=== PATIENT | male | born 1940 | race Caucasian/White ===

== ENCOUNTER → 2018-03-02 | Outpatient (CLI) | payer MEDICARE, BC ==
--- NOTE | 2018-03-02 18:06 | CONS ---
CONSULTATION DATE OF SERVICE: 03/02/2018 77-year-old gentleman has been evaluated in the sleep center for possible obstructive sleep apnea-hypopnea syndrome. HISTORY OF PRESENT ILLNESS/SLEEP WAKE EVALUATION: Patient usual sleep schedule from 10:30 am until 7:15 am. No problems with falling asleep. No TV in bedroom. Patient sleeps with snoring and awakenings from sleep multiple times with dry mouth and nocturia 3 times at night. After awakenings at night, he has difficulties to fall asleep again. In the morning, he wakes up tired, falling asleep during the day. [place] Sleepiness Scale significantly increased to 12. PAST MEDICAL HISTORY: Positive for hypertension, coronary artery disease, right heel squamous cell carcinoma, hyperlipidemia, thrombocytosis. PAST SURGICAL HISTORY: Coronary artery bypass graft in 1995, surgery for right heel squamous cell carcinoma, left hip replacement. MEDICATIONS: Aspirin, folic acid, Lipitor, Lopressor, Plavix, . SOCIAL HISTORY: Negative for smoking. Alcohol consumption up to two glasses of whiskey every day. REVIEW OF SYSTEMS: Multiple awakenings from sleep and difficulties to fall asleep again. FAMILY HISTORY: Heart problems, snoring. PHYSICAL EXAMINATION: During physical exam, a gentleman without distress. BP 177/100, HR 79, RR 20, height 6 feet 2 inches. Weight 406.6 pounds, body mass index 52.1, temperature 97.5, oxygen saturation at room air 96%. Oropharynx: Extremely low position of soft palate. Wide neck, 21 inches in circumference. ABDOMEN: Obese. Extremities: 1+ ankle edema. Neck Supple, no JVD. Thyroid is not palpable. LUNGS Clear to percussion and to auscultation. Good air exchange. No wheezing or rhonchi. HEART: Systolic murmur. ABDOMEN: Obese. Soft and nontender. Bowel sounds are present. No organomegaly appreciated. EXTREMITIES No clubbing or cyanosis. IT PROJECT COORDINATOR Awake, alert, and oriented X3. Cranial nerves 2 to 7 intact. There is no fasciculation or atrophy. noted. No focal deficits observed. IMPRESSION: 1. Snoring, multiple awakenings from sleep, extremely low position of soft palate, wide neck. Excessive daytime sleepiness. [place] Sleepiness Scale increased to 12. Obstructive sleep apnea-hypopnea syndrome. 2. Morbid obesity. Body mass index 52.1, possible obesity hypoventilation. 3. Hypertension. 4. Coronary artery disease, status post coronary artery bypass grafting. 5. Thrombocytosis. 6. Status post left hip replacement. 7. Hyperlipidemia. 8. Status post surgical treatment of right heel squamous cell carcinoma. PLAN: 1. Polysomnography for evaluation of patient's breathing during sleep. 2. CPAP/BiPAP titration if sleep study confirms obstructive sleep apnea-hypopnea syndrome. 3. Preferable position during sleep on the side. 4. No driving if patient feels any sleepiness. 5. I will see patient for follow up visit to explain results of testing and following plan. Thank you very much for referring this patient for consultation. Sincerely, Robb Chung MD, PhD, FAASM Diplomat of Citizen Of [place] Board of Medical Specialties Citizen Of [place] Board of Internal Medicine Supervisor [employer] of [facility] [place] MMALEENAL / SAMEER: [id number] /
== END | disposition home or self-care (01) ==
LOC: SLEEP 10:55
PROVIDERS: ATTEND Internal Medicine
DX: G47.33 Obstructive sleep apnea (adult) (pediatric) (principal); E66.01 Morbid (severe) obesity due to excess calories; Z68.43 Body mass index [BMI] 50.0-59.9, adult; I10 Essential (primary) hypertension; I25.10 Atherosclerotic heart disease of native coronary artery without angina pectoris; D47.3 Essential (hemorrhagic) thrombocythemia; E78.5 Hyperlipidemia, unspecified; Z95.1 Presence of aortocoronary bypass graft; Z96.642 Presence of left artificial hip joint; Z79.82 Long term (current) use of aspirin; Z79.899 Other long term (current) drug therapy; Z79.02 Long term (current) use of antithrombotics/antiplatelets
CPT/HCPCS: 99211

== ENCOUNTER → 2018-11-03 | Outpatient (CLI) | payer MEDICARE, BC ==
--- NOTE | 2018-11-03 12:49 | SFUN ---
SLEEP CENTER FOLLOW UP NOTE DATE OF SERVICE: 11/03/2018 This 78-year-old gentleman had been followed in sleep center for treatment of obstructive sleep apnea-hypopnea syndrome. Recently the patient had a polysomnogram and BiPAP titration. Polysomnogram showed extremely severe obstructive sleep apnea with apnea-hypopnea index 83.5 and oxygen desaturation 75.9%. Subsequently, patient received his BiPAP machine. Today is his first time when he came for follow-up visit after starting treatment with BiPAP. Patient is able to use BiPAP equipment every night for the whole night. He feels much better with the usage of BiPAP, feel much better during the night and much better during the day. I checked his BiPAP unit pressure is 15/10 cm of water. Usage is 100% of night more than 4 hours with average usage 8.2 hours. Leak is 47 L/minute, which is quite high, but apnea-hypopnea index is only 3.0, which is absolutely normal. The patient is using DreamWear full face mask. [place] Sleepiness Scale today is 3. Last night, the patient had some technical problem with the machine. Machine did not want to start up. PHYSICAL EXAMINATION: During physical exam, patient in no distress. VITAL SIGNS: BP 144/69, HR 105, RR 18, temperature 97.8, oxygen saturation on room air 99%. HEENT: PERRLA, EOMI. Oropharynx extremely low position of soft palate. Mallampati 4. NECK: Supple, no JVD. Thyroid is not palpable. LUNGS: Clear to percussion and to auscultation. Good air exchange. No wheezing or rhonchi. HEART: S1, S2 regular. No murmurs, gallops, or rubs. ABDOMEN:Obese. EXTREMITIES: 1+ bilateral ankle edema. RESEARCH TECHNOLOGIST: Awake, alert, and oriented X3. Cranial nerves 2 to 7 intact. There is no fasciculation or atrophy. noted. No focal deficits observed. IMPRESSION: 1. Severe obstructive sleep apnea-hypopnea syndrome on full control with BiPAP. The patient demonstrated 100% compliance with treatment, benefitting from treatment. 2. Obesity. 3. Extremely severe periodic limb movements, but clinically patient does not complain of any leg movements at the present time. 4. Hypertension. 5. Coronary artery disease, status post coronary artery bypass grafting. 6. Thrombocytosis. 7. Status post left hip replacement. 8. Hyperlipidemia. 9. Status post surgical treatment of right leg squamous cell carcinoma. PLAN: 1. Patient will continue to use BiPAP equipment every night for the whole night. 2. Losing weight. 3. Sleep hygiene with regular time in bed for at least 8 hours. 4. No driving if feeling sleepiness. 5. I will maintain all necessary prescriptions for CPAP supplies including full face mask, tube, filters. Thank you very much for allowing me to participate in management of your patient. Sincerely, Robb Chung MD, PhD, FAASM Diplomat of [place] Board of Medical Specialties [place] Board of Internal Medicine Industrial Electrical Engineer of [facility] [place] MMODL / IJN: [id number] /
== END ==
LOC: SLEEP 11:03
PROVIDERS: ATTEND Internal Medicine
DX: G47.33 Obstructive sleep apnea (adult) (pediatric) (principal); E66.9 Obesity, unspecified; I10 Essential (primary) hypertension; I25.10 Atherosclerotic heart disease of native coronary artery without angina pectoris; E78.5 Hyperlipidemia, unspecified; Z95.1 Presence of aortocoronary bypass graft; Z96.642 Presence of left artificial hip joint; Z98.890 Other specified postprocedural states; Z99.89 Dependence on other enabling machines and devices

== ENCOUNTER → 2019-03-23 | Outpatient (CLI) | payer MEDICARE, BC ==
--- NOTE | 2019-03-23 14:35 | SFUN ---
SLEEP CENTER FOLLOW UP NOTE DATE OF SERVICE: 03/23/2019 A 79-year-old gentleman who has been followed in the Sleep Center for treatment of severe obstructive sleep apnea-hypopnea syndrome. Patient continued to use his BiPAP machine every night for the whole night. No snoring with the machine. [place] Sleepiness Scale today is 8, which is in normal range. I checked BiPAP unit, pressure is 15/10 cm of water. Usage is 30/30 nights for last months for more than 4 hours with average usage 8.6 hours per night, which is normal time, still high leak at 49 L/minute. The patient is using a full-face Dream Wear under the nose mask. Apnea-hypopnea index is absolutely perfect. It is only 0.6, and spontaneous breathing 98.5%. MEDICATIONS: Aspirin, folic acid, Lipitor (Plavix). PHYSICAL EXAM: Patient in no distress BP 146/73, HR 78, RR 18, height 5 feet 11-1/2 inches, weight 377.0, temperature 96.9, oxygen saturation at room air 97%. Wounds are oropharynx extremely low position of soft palate, Mallampati 4. ABDOMEN: Obese. NECK: Supple, no JVD. Thyroid is not palpable. LUNGS: Clear to percussion and to auscultation. Good air exchange. No wheezing or rhonchi. HEART: S1, S2 regular. No murmurs, gallops, or rubs. EXTREMITIES: No clubbing or cyanosis. BUTT WELDER: Awake, alert, and oriented X3. Cranial nerves 2 to 7 intact. There is no fasciculation or atrophy. noted. No focal deficits observed. IMPRESSION: 1. Severe obstructive sleep apnea-hypopnea syndrome on full control with BiPAP. The patient demonstrated 100% compliance with treatment, benefitting from treatment. 2. Obesity. 3. Severe periodic limb movements on the sleep study, but no clinical symptoms of periodic limb movements. No problems in the legs at night. No problems with the legs in 01/2019. 4. Hypertension. 5. Coronary artery disease, status post coronary artery bypass grafting. 6. Thrombocytosis. 7. Status post left hip replacement. 8. Hyperlipidemia. 9. Status post surgical treatment of squamous cell carcinoma of right leg. PLAN: 1. Patient will continue to use BiPAP equipment with a pressure of 15/10 cm of water. 2. Losing weight. 3. Sleep hygiene with regeular time in bed for 7-1/2 to 8 hours. 4. No driving if feeling sleepiness. 5. Prescription for all necessary CPAP supplies. 6. Followup visit in 1 year or earlier if patient has any problems. Thank you very much for allowing me to participate in the management of your patient. Sincerely, Robb Chung MD, PhD, FAASM Diplomat of [place] Board of Medical Specialties [place] Board of Internal Medicine Meat Supervisor of [facility] [place] MMODL / IJN: [id number] /
== END | disposition home or self-care (01) ==
LOC: SLEEP 13:09
PROVIDERS: ATTEND Internal Medicine
DX: G47.33 Obstructive sleep apnea (adult) (pediatric) (principal); E66.9 Obesity, unspecified; G47.61 Periodic limb movement disorder; I10 Essential (primary) hypertension; I25.10 Atherosclerotic heart disease of native coronary artery without angina pectoris; Z68.43 Body mass index [BMI] 50.0-59.9, adult; D47.3 Essential (hemorrhagic) thrombocythemia; E78.5 Hyperlipidemia, unspecified; Z95.5 Presence of coronary angioplasty implant and graft; Z96.642 Presence of left artificial hip joint; Z85.828 Personal history of other malignant neoplasm of skin; Z79.82 Long term (current) use of aspirin; Z79.899 Other long term (current) drug therapy

== ENCOUNTER → 2020-04-11 | Outpatient (CLI) | payer MEDICARE, BC ==
--- NOTE | 2020-04-11 23:21 | SFUN ---
SLEEP CENTER FOLLOW UP NOTE DATE OF SERVICE: 04/11/2020 This is an 80-year-old gentleman who has been followed in Sleep Center for treatment of obstructive sleep apnea-hypopnea syndrome. Last time I saw the patient was about 1-1/2 years ago. The patient continues to use his BiPAP equipment every night for the whole night. He does not have significant problems related to pressure, mask fitting or humidification. [place] Sleepiness Scale today is 5, which is normal. I checked his BiPAP unit. Pressure is 5/10 cm of water. Usage is 100% of nights for more than 4 hours with average usage 9 hours per night. Leak is 8 L/minute, which is normal. Apnea-hypopnea index was only 0.4, which is perfect. The patient is using a medium DreamWear full-face [id number] mask. MEDICATIONS: 1. Aspirin 325 mg every other day. 2. Plavix 75 mg every other day. 3. Lipitor 40 mg once daily. 4. Lopressor 25 mg. 5. Oxybutynin 5 mg two tablets daily. 6. Anagrelide 0.5 mg. PHYSICAL EXAMINATION: GENERAL: A pleasant patient in no distress. Sitting in wheelchair. VITAL SIGNS: BP 161/70, HR 76, RR 15, height 6 feet 2 inches, weight 375. HEENT: PERRLA, EOMI. Evaluation of oropharynx showed tongue protrudes midline. Extremely low position of soft palate. Mallampati IV. NECK: Supple. No JVD. Thyroid is not palpable. LUNGS: Clear to percussion and to auscultation. Good air exchange. No wheezing or rhonchi. HEART: S1, S2 regular. No murmurs, gallops or rubs. ABDOMEN: Obese. EXTREMITIES: One plus bilateral ankle edema. ICT HELP DESK TECHNICIAN: Awake, alert, and oriented X3. Cranial nerves 2 to 7 intact. There is no fasciculation or atrophy. noted. No focal deficits observed. IMPRESSION: 1. Severe obstructive sleep apnea-hypopnea syndrome, under full control with BiPAP. The patient demonstrated 100% compliance with treatment, benefitting from treatment. 2. Obesity. 3. History of severe periodic limb movements. 4. Hypertension. 5. Coronary artery disease, status post coronary artery bypass grafting. 6. Thrombocytosis. 7. Status post left hip replacement. 8. Hyperlipidemia. 9. Status post surgical treatment of right leg squamous cell carcinoma. PLAN: 1. Patient will continue to use PAP equipment every night for the whole night. 2. Sleep hygiene with regular time in bed for at least 7-1/2 to 8 hours. 3. Precautions related to driving. No driving if feeling sleepiness. 4. I will maintain all necessary prescription for PAP supplies including mask, tube, filters. 5. Watching weight. 6. No driving if feeling sleepiness. 7. Follow-up visit in 6 months or earlier if patient has any problems. Thank you very much for allowing me to participate in the management of your patient. Sincerely, Robb Chung MD, PhD, FAASM Diplomat of [place] Board of Medical Specialties Lithuan[place] Board of Internal Medicine Wharf Hand of [facility] [place] MMODL / IJN: [id number] /
== END | disposition home or self-care (01) ==
LOC: SLEEP 15:33
PROVIDERS: ATTEND Internal Medicine
DX: G47.33 Obstructive sleep apnea (adult) (pediatric) (principal); E66.9 Obesity, unspecified; I25.10 Atherosclerotic heart disease of native coronary artery without angina pectoris; E78.5 Hyperlipidemia, unspecified; Z95.1 Presence of aortocoronary bypass graft; Z96.642 Presence of left artificial hip joint; Z79.82 Long term (current) use of aspirin; Z79.899 Other long term (current) drug therapy; Z79.02 Long term (current) use of antithrombotics/antiplatelets; Z99.89 Dependence on other enabling machines and devices

== ENCOUNTER → 2020-11-28 | Outpatient (CLI) | payer MEDICARE, BC ==
--- NOTE | 2020-11-28 16:54 | SFUN ---
SLEEP CENTER FOLLOW UP NOTE DATE OF SERVICE: 11/28/2020 INTERVAL HISTORY: 80-year-old gentleman has been followed in Sleep Center for treatment of obstructive sleep apnea-hypopnea syndrome. The patient continues to use BiPAP equipment every night and get his supplies in time. [place] Sleepiness Scale is 7 which is in normal range. I checked BiPAP unit. Pressure is 15/11 cm of water. Usage is 30/30 nights for more than 4 hours, average 8.6 hours per night, which is great compliance. Leak is only 2 L/minute. Apnea-hypopnea index only 0.1, which is absolutely perfect. MEDICATIONS: Aspirin 325 mg every other day, Plavix 75 mg once a day, Lipitor 40 mg once a day, Lopressor 25 mg once a day, Hydrea 0.5 mg 3 caps daily, oxybutynin 5 mg 2 tablets daily. PHYSICAL EXAMINATION: GENERAL: Patient in no distress. BP 132/67, HR 72, RR 15, height 6 feet 0 inches, weight 354.0, temperature 97.2, oxygen saturation at room air 98%. Oropharynx: Extremely low position of soft palate, Mallampati IV. NECK: Supple, no JVD. Thyroid is not palpable. LUNGS: Clear to percussion and to auscultation. Good air exchange. No wheezing or rhonchi. HEART: S1, S2 regular. No murmurs, gallops, or rubs. ABDOMEN: Obese. Soft and nontender. Bowel sounds are present. No organomegaly appreciated. EXTREMITIES: No clubbing or cyanosis. DIRECTOR OF HEALTH EDUCATION: Awake, alert, and oriented X3. Cranial nerves 2 to 7 intact. There is no fasciculation or atrophy. noted. No focal deficits observed. IMPRESSION: 1. Severe obstructive sleep apnea-hypopnea syndrome. The patient demonstrated 100% compliance with treatment. Totally normal respiration on BiPAP. 2. Obesity. Patient lost 21 pounds since the previous visit, obesity morbid range. Body mass index 48. 3. History of severe periodic limb movements. No complaints on any leg movements at night. 4. Hypertension. 5. Coronary artery disease, status post coronary artery bypass grafting. 6. Thrombocytosis. 7. Status post left hip replacement. 8. Hyperlipidemia. 9. Status post surgical treatment of right leg squamous cell carcinoma. PLAN: 1. Patient will continue to use PAP equipment every night for the whole night. 2. Sleep hygiene with regular time in bed for at least 7-1/2 to 8 hours. 3. Precautions related to driving. No driving if feeling sleepiness. 4. I will maintain all necessary prescription for PAP supplies including mask, tube, filters. 5. Watching weight. 6. Follow-up visit in 6 months or earlier if patient has any problems. I spent with the patient and documentation of 30 minutes. Thank you very much for allowing me to participate in the management of your patient. Sincerely, Robb Chung MD, PhD, FAASM Diplomat of [place] Board of Medical Specialties Sleep Medicine Board of [place] Board of Internal Medicine Brick Sorter of [facility] [place] MMODL / EULALIAN: [id number] /
== END ==
LOC: SLEEP 11:03
PROVIDERS: ATTEND Internal Medicine
DX: G47.33 Obstructive sleep apnea (adult) (pediatric) (principal); E66.9 Obesity, unspecified; I10 Essential (primary) hypertension; I25.10 Atherosclerotic heart disease of native coronary artery without angina pectoris; D47.3 Essential (hemorrhagic) thrombocythemia; E78.5 Hyperlipidemia, unspecified; Z96.642 Presence of left artificial hip joint; Z95.1 Presence of aortocoronary bypass graft; Z68.42 Body mass index [BMI] 45.0-49.9, adult; Z85.89 Personal history of malignant neoplasm of other organs and systems; Z98.890 Other specified postprocedural states; Z79.82 Long term (current) use of aspirin; Z79.899 Other long term (current) drug therapy; Z88.8 Allergy status to other drugs, medicaments and biological substances

== ENCOUNTER → 2021-11-20 | Outpatient (CLI) | payer MEDICARE, BC ==
--- NOTE | 2021-11-20 12:02 | P.PN ---
Subjective DATE: 11/20/2021 FOLLOW UP VISIT. Patient with obstructive sleep apnea hypopnea syndrome return to sleep center for follow-up visit. Information from previous visit have been reviewed. Patient is using PAP equipment every night for the whole night, getting PAP supplies in time. The patient does not have significant problems with the mask, PAP unit and humidification. [place] sleepiness scale is 7. I checked PAP unit. BIPAP unit pressure 15/10 cm H2O. Usage is 100 % for more then 4 hours, average 8.4 hours per night. Leak is to l/m, which is in normal range. Apnea Hypopnea Index is 0.2, which is perfect. MEDICATIONS:1. Plavix 75 mg once a day 2. Lipitor 40 mg once a day 3. Aspirin 325 mg every other day 4. Lopressor 25 mg once a day 5. Oxybutynin 5 mg 2 tablets daily 6. Hydrea 0.5 mg 3 cups daily During physical exam: GENERAL: A pleasant patient without any distress. VITAL SIGNS: BP 119/70, HR 62, RR 14 , weight 376, temperature 96.1, oxygen saturation at room air 99 % . HEENT: PERRLA, EOMI.low position of soft palate, Mallapati 4 . NECK: Supple. No JVD. LUNGS: Clear to percussion and to auscultation. Good air exchange. No wheezing or rhonchi. HEART: S1, S2 regular. ABDOMEN: Soft and nontender. Obese EXTREMITIES: No clubbing or cyanosis. NEON TUBE BENDER: Awake, alert, and oriented x3. No focal deficit. Impressions: 1. Obstructive sleep apnea-hypopnea syndrome. Patient demonstrated great compliance with treatment, benefiting from treatment. 2. Obesity, patient increased his weight on around 22 pounds. 3. Hypertension. 4. Coronary artery disease status post CABG. 5. History of severe periodic limb movements, no complaints of leg movements. 6. History of thrombocytosis. 7. Hyperlipidemia. 8. Status post left hip replacement. 9. Status post surgical treatment of right leg squamous cell CA. Plan: 1. Continue using PAP equipment every night for the whole night. 2. To change air filter at least 1-2 times per month. 3. PAP unit should stay lower then position of the head. 4. Advised patient to remove all remaining water from humidifier canister daily and make it dry after each usage. Refill canister with fresh distilled water before each usage. 5. Sleep hygiene with regular time in bed for at least 8 hours. 6. Precautions related to driving. No driving if feel any sleepiness. 7. I will maintain prescription for PAP supplies including mask, tube, filters. 8. Follow up visit in 6 months or earlier if patient has any problems. 9. Watching and losing weight. Thank you very much for allowing me to participate in the management of your patient. Robb Chung MD, PhD, FAASM. Diplomat of [place] Board of Sleep Medicine, Sleep Medicine Board by [place] Board of Internal Medicine Erp Engineer of [facility] [place]
== END ==
LOC: SLEEP 11:29
PROVIDERS: ATTEND Internal Medicine
DX: G47.33 Obstructive sleep apnea (adult) (pediatric) (principal); E66.9 Obesity, unspecified; I10 Essential (primary) hypertension; I25.10 Atherosclerotic heart disease of native coronary artery without angina pectoris; D04.71 Carcinoma in situ of skin of right lower limb, including hip; Z95.1 Presence of aortocoronary bypass graft; G47.61 Periodic limb movement disorder; Z96.642 Presence of left artificial hip joint; Z98.890 Other specified postprocedural states; Z99.89 Dependence on other enabling machines and devices; Z86.2 Personal history of diseases of the blood and blood-forming organs and certain disorders involving the immune mechanism; Z88.8 Allergy status to other drugs, medicaments and biological substances

== ENCOUNTER → 2022-07-01 | Outpatient (CLI) | payer MEDICARE, BC ==
--- NOTE | 2022-07-01 12:05 | P.PN ---
Subjective DATE: 07/01/2022 FOLLOW UP VISIT. Patient with obstructive sleep apnea hypopnea syndrome return to sleep center for follow-up visit. Information from previous visit have been reviewed. Patient is using PAP equipment every night for the whole night, getting PAP supplies in time. The patient does not have significant problems with the mask, PAP unit and humidification. [place] sleepiness scale is 8, which is normal. I checked information from PAP unit and explained it to the patient. BPAP unit pressure 15/10 cm H2O. Usage is 100 % for more then 4 hours, average 8.6 hours per night. Leak is 5 l/m, which is in acceptable range. Apnea Hypopnea Index is perfect 0.1. MEDICATIONS:1. Plavix 75 mg once a day 2. Lipitor 40 mg once a day 3. Aspirin 325 mg once a day 4. Lopressor 50 mg once a day 5. Oxybutynin 5 mg once a day 6. Hydrea 500 mg once a day During physical exam: GENERAL: A pleasant patient without any distress. VITAL SIGNS: BP 118/70, HR 69, RR 16 , weight 357, body mass index 4 48.7, temperature 97.4, oxygen saturation at room air 99 % . HEENT: PERRLA, EOMI.low position of soft palate, Mallapati 4 . NECK: Supple. No JVD. LUNGS: Clear to percussion and to auscultation. Good air exchange. No wheezing or rhonchi. HEART: S1, S2 regular. ABDOMEN: Soft and nontender. Obese EXTREMITIES: No clubbing or cyanosis. SALON SALES CONSULTANT: Awake, alert, and oriented x3. No focal deficit. Impressions: 1. Obstructive sleep apnea-hypopnea syndrome. Patient demonstrated great compliance with treatment, benefiting from treatment. 2. Obesity, patient lost 19 pounds since previous visit, body mass index 48.7. 3. Coronary artery disease, status post CABG. 4. Hypertension. 5. History of severe periodic limb movements, presently no complaints. 6. History of thrombocytosis for many years. 7. Status post left hip replacement. 8. Hyperlipidemia. 9. Status post surgical treatment for squamous cell CA of right leg. Plan: 1. Continue using PAP equipment every night for the whole night. 2. To change air filter at least 1-2 times per month. 3. PAP unit should stay lower then position of the head. 4. Advised patient to remove all remaining water from humidifier canister daily and make it dry after each usage. Refill canister with fresh distilled water before each usage. 5. Sleep hygiene with regular time in bed for at least 8 hours. 6. Precautions related to driving. No driving if feel any sleepiness. 7. I will maintain prescription for PAP supplies including mask, tube, filters. 8. Watching and continue losing weight. 9. Follow up visit in 6 months or earlier if patient has any problems. Thank you very much for allowing me to participate in the management of your patient. Robb Chung MD, PhD, FAASM. Diplomat of [place] Board of Sleep Medicine, Sleep Medicine Board by [place] Board of Internal Medicine Shuttle Filler of [facility] [place]
== END ==
LOC: SLEEP 11:39
PROVIDERS: ATTEND Internal Medicine
DX: G47.33 Obstructive sleep apnea (adult) (pediatric) (principal); E66.9 Obesity, unspecified; E78.5 Hyperlipidemia, unspecified; I10 Essential (primary) hypertension; I25.10 Atherosclerotic heart disease of native coronary artery without angina pectoris; Z68.42 Body mass index [BMI] 45.0-49.9, adult; Z79.899 Other long term (current) drug therapy; Z95.1 Presence of aortocoronary bypass graft; Z96.642 Presence of left artificial hip joint; Z79.82 Long term (current) use of aspirin; Z99.89 Dependence on other enabling machines and devices
CPT/HCPCS: 99212

== ENCOUNTER → 2023-01-06 | Outpatient (CLI) | payer MEDICARE, BC ==
--- NOTE | 2023-01-06 14:31 | P.PN ---
Subjective DATE: 01/06/2023 FOLLOW UP VISIT. Patient with obstructive sleep apnea hypopnea syndrome return to sleep center for follow-up visit. Information from previous visit have been reviewed. Patient is using BPAP equipment every night for the whole night, getting PAP supplies in time. The patient does not have significant problems with the mask, BPAP unit and humidification. [place] sleepiness scale is 6, which is normal. I checked information from PAP unit. BPAP unit pressure 15/10 cm H2O. Usage is 100 % for more then 4 hours, average 8.5 hours per night. Leak is 14.0 l/m, which is in acceptable range. Apnea Hypopnea Index is perfect 0.1. MEDICATIONS:1. Oxybutynin 5 mg once a day 2. Lipitor 40 mg once a day 3. Lopressor 50 mg once a day 4. Aspirin 325 mg once a day 5. Plavix 75 mg once a day 6. Hydrea 500 mg once a day During physical exam: GENERAL: A pleasant patient without any distress. VITAL SIGNS: BP 104/69, HR 91, RR 18, weight 338.2, temperature 97.6, oxygen saturation at room air 96 % . HEENT: PERRLA, EOMI.low position of soft palate, Mallapati 4 . NECK: Supple. No JVD. LUNGS: Clear to percussion and to auscultation. Good air exchange. No wheezing or rhonchi. HEART: S1, S2 regular. ABDOMEN: Soft and nontender. Obese EXTREMITIES: No clubbing or cyanosis. SENIOR TELECOMMUNICATIONS CONSULTANT: Awake, alert, and oriented x3. No focal deficit. Impressions: 1. Obstructive sleep apnea-hypopnea syndrome. Patient demonstrated great compliance with treatment, benefiting from treatment. 2. Obesity, patient lost 19 pounds since previous visit. 3. Coronary artery disease, status post CABG. 4. History of severe periodic limb movements, no complaints of leg movements at night. 5. Hypertension. 6. History of thrombocytosis. 7. Status post surgical treatment for squamous cell carcinoma of right leg. 8. Hyperlipidemia. 9. Status post left hip replacement. Plan: 1. Continue using PAP equipment every night for the whole night. 2. To change air filter at least 1-2 times per month. 3. PAP unit should stay lower then position of the head. 4. Advised patient to remove all remaining water from humidifier canister daily and make it dry after each usage. Refill canister with fresh distilled water before each usage. 5. Sleep hygiene with regular time in bed for at least 8 hours. 6. Precautions related to driving. No driving if feel any sleepiness. 7. I will maintain prescription for PAP supplies including mask, tube, filters. 8. Follow up visit in 6 months or earlier if patient has any problems. 9. Watching and losing weight. Thank you very much for allowing me to participate in the management of your patient. Robb Chung MD, PhD, FAASM. Diplomat of [place] Board of Sleep Medicine, Sleep Medicine Board by [place] Board of Internal Medicine [employer]istrar [employer] [facility] [place]
== END ==
LOC: 3 N SLEEP 11:45
PROVIDERS: ATTEND Internal Medicine
DX: G47.33 Obstructive sleep apnea (adult) (pediatric) (principal); E66.9 Obesity, unspecified; E78.5 Hyperlipidemia, unspecified; I10 Essential (primary) hypertension; G47.61 Periodic limb movement disorder; I25.10 Atherosclerotic heart disease of native coronary artery without angina pectoris; Z79.02 Long term (current) use of antithrombotics/antiplatelets; Z79.899 Other long term (current) drug therapy; Z95.1 Presence of aortocoronary bypass graft; Z96.642 Presence of left artificial hip joint; Z99.89 Dependence on other enabling machines and devices; Z79.82 Long term (current) use of aspirin; Z88.8 Allergy status to other drugs, medicaments and biological substances
CPT/HCPCS: 99212

== ENCOUNTER 2024-02-26 09:30 | Emergency (ER) | payer MEDICARE, BC ==
[2024-02-26 09:36] VITALS: RESP 18
--- NOTE | 2024-02-26 09:52 | ED ---
Fall HPI - General Chief Complaint: Fall Stated Complaint: Fall, Weakness Time Seen by Provider: 02/26/24 09:35 Source: patient, EMS, RN notes reviewed Mode of arrival: EMS Limitations: no limitations - History of Present Illness Initial Comments: This is an 83-year-old male who presents to the emergency department for a fall. Patient has a history of peripheral neuropathy that he states is getting worse. As a result states that this caused him to fall this morning. He was able to lower himself to the ground and he did not hit his head. States that he hit his right lower rib cage in the fall, which is somewhat painful when he coughs, but otherwise denies any injuries. Denies hitting his head or any loss of consciousness. He is on Plavix. States that he has had a cough and some congestion over the last week, but has not yet had it evaluated. Otherwise denies any complaints. Denies any chest pain or shortness of breath. MD Complaint: fall - Related Data Home Medications Medication Instructions Recorded Confirmed Aspirin 325 mg PO SUTUTHSA 08/27/14 08/02/17 B Complex-Vit C-Vit E-Zinc [Z-Bec] 1 each PO DAILY@1200 08/27/14 08/02/17 Clopidogrel [Plavix] 75 mg PO MOWEFR 08/27/14 08/02/17 Folic Acid 1 mg PO DAILY 08/27/14 08/02/17 Metoprolol Tartrate [Lopressor] 25 mg PO DAILY 08/27/14 08/02/17 Anagrelide [Agrylin] 0.5 cap PO DIRECTED 08/06/15 08/02/17 Atorvastatin [Lipitor] 40 mg PO HS 08/06/15 08/02/17 Multivitamin [Men's Multi-Vitamin] 1 tab PO DAILY 07/06/16 08/02/17 Oxybutynin Chloride 50 mg PO BID 07/06/16 08/02/17 Gabapentin [Neurontin] 600 mg PO TID 01/05/17 08/02/17 Previous Rx's Medication Instructions Recorded Gabapentin 600 mg PO TID #90 tab 01/19/17 Nystatin 100,000Unit/gm Cream 1 applic TOPICAL BID #30 gm 02/16/17 [Mycostatin Cream] Triamcinolone 0.1% Cream [Kenalog 1 applicatio TOPICAL BID #45 gram 03/16/17 0.1% Cream] Gabapentin 600 mg PO TID #270 tab 04/30/17 traMADol HCl [Ultram] 50 mg PO Q6HR PRN #40 tab 07/26/17 Benzonatate [Tessalon Perle] 200 mg PO TID PRN #30 capsule 02/26/24 Nirmatrelvir/Ritonavir [Paxlovid 1 pack PO BID 5 Days #30 tab 02/26/24 300-100 mg Dose Pack] Allergies Allergy/AdvReac Type Severity Reaction Status Date / Time cortisone Allergy Rash/Hives Verified 02/26/24 09:36 Review of Systems ROS Statement: Those systems with pertinent positive or pertinent negative responses have been documented in the HPI. ROS Other: All systems not noted in ROS Statement are negative. Past Medical History Past Medical History: Blood Disorder, Myocardial Infarction ([place]), Rheumatoid Arthritis ([place]), Vascular Disorder Additional Past Medical History / Comment(s): high platlets, wound rt heel,cancer rt.foot Last Myocardial Infarction Date:: 1994 History of Any Multi-Drug Resistant Organisms: None Reported Past Surgical History: Coronary Bypass/CABG, Orthopedic Surgery Additional Past Surgical History / Comment(s): left hip replacement Past Anesthesia/Blood Transfusion Reactions: No Reported Reaction Past Psychological History: No Psychological Hx Reported Past Alcohol Use History: Occasional Past Drug Use History: None Reported - Past Family History Mother Family Medical History: No Reported History General Exam Limitations: no limitations General appearance: alert, in no apparent distress Head exam: Present: atraumatic, normocephalic, normal inspection Eye exam: Present: normal appearance, PERRL, EOMI. Absent: scleral icterus, conjunctival injection, periorbital swelling Respiratory exam: Present: normal lung sounds bilaterally. Absent: respiratory distress, wheezes, rales, rhonchi, stridor Cardiovascular Exam: Present: regular rate, normal rhythm, normal heart sounds. Absent: systolic murmur, diastolic murmur, rubs, gallop, clicks GI/Abdominal exam: Present: soft, normal bowel sounds. Absent: distended, tende rness, guarding, rebound, rigid Neurological exam: Present: alert, oriented X3, CN II-XII intact Psychiatric exam: Present: normal affect, normal mood Skin exam: Present: warm, dry, intact, normal color. Absent: rash Course Vital Signs 12/14/24 12/14/24 12/14/24 09:33 11:00 11:37 Temperature 98.6 F 98.0 F Pulse Rate 101 H 108 H 90 Respiratory 18 18 18 Rate Blood Pressure 103/56 120/77 129/88 O2 Sat by Pulse 94 L 94 L 97 Oximetry Medical Decision Making - Medical Decision Making This is an 83 year old male who presents to the emergency department for a fall and a cough. Was pt. sent in by a medical professional or institution? @ -No Did you speak to anyone other than the patient for history? @ -No Did you review nursing and triage notes? @ -Yes, and I agree, it is accurate with regards to the patient's symptoms. Were old charts reviewed? @ -No Differential Diagnosis? @ -Differential Cough: Influenza, Covid, RSV, croup, allergic rhinitis, GERD, pneumonia, bronchitis, COPD, viral pharyngitis, streptococcal pharyngitis, this is not meant to be an all-inclusive list. EKG interpreted by me (3pts min.)? @ -EKG interpreted by me demonstrating the following: Sinus tachycardia. Ventricular rate 102 bpm, [place] interval 212 ms, QRS duration 140 ms, QTc 465 ms. X-rays interpreted by me (1pt min.)? @ -Chest x-ray obtained, my interpretation identifies no localized consolidations or infiltrates. CT interpreted by me (1pt min.)? @ -Not obtained U/S interpreted by me (1pt. min.)? @ -Not obtained What testing was considered but not performed? (CT, X-rays, U/S, labs)? Why? @ -None What meds were considered but not given? Why? @ -None Did you discuss the management of the patient with other professionals? @ -No Did you reconcile home meds? @ -No Was smoking cessation discussed for >3mins.? @ -No Was critical care preformed (if so, how long)? @ -No Were there social determinants of health that impacted care today? How? (Homelessness, low income, unemployed, alcoholism, drug addiction, transportation, low edu. Level, literacy, decrease access to med. care, [facility], rehab)? @ -No Was there de-escalation of care discussed even if they declined? (Discuss DNR or withdrawal of care, Hospice)? @ -No What co-morbidities impacted this encounter? (DM, HTN, Smoking, COPD, CAD, Cancer, CVA, Hep., AIDS, mental health diagnosis, sleep apnea, morbid obesity)? @ -CAD Was patient admitted / discharged? @ -Discharged. Lab work relatively unremarkable. Patient positive for COVID- 19. Chest x-ray suggestive of atelectasis. Findings reviewed with the patient. Advised that this is likely why he is experiencing the URI symptoms. We did attempt to get a urinalysis as well, however he was unable to provide one prior to discharge. Paxlovid prescribed due to his comorbidities along with Tessalon Perles for the cough. Advised Tylenol as needed for any discomfort. Patient discharged home via wheelchair van in stable condition. Case discussed with ED attending Dr. Olea. Return precautions reviewed in depth, the patient is instructed to return to the emergency department with any new, worsening, or concerning symptoms. Patient verbalized understanding. Undiagnosed new problem with uncertain prognosis? @ -None Drug Therapy requiring intensive monitoring for toxicity (Heparin, Nitro, Insulin, Cardizem)? @ -None Were any procedures done? @ -None Diagnosis/symptom? @ -Fall, COVID-19 Acute, or Chronic, or Acute on Chronic? @ -Acute Uncomplicated (without systemic symptoms) or Complicated (systemic symptoms)? @ -Uncomplicated Side effects of treatment? @ -None Exacerbation, Progression, or Severe Exacerbation] @ -Not applicable Poses a threat to life or bodily function? @ -No - Lab Data Result diagrams: 02/26/24 09:46 02/26/24 09:46 Lab Results 02/26/24 02/26/24 02/26/24 Range/Units 09:46 09:46 09:46 WBC 9.1 (3.8-10.6) k/uL RBC 2.54 L (4.30-5.90) m/uL Hgb 11.7 L (13.0-17.5) gm/dL Hct 35.5 L (39.0-53.0) % MCV 140.1 H (80.0-100.0) fL MCH 46.2 H (25.0-35.0) pg MCHC 33.0 (31.0-37.0) g/dL RDW 13.8 (11.5-15.5) % Plt Count 283 (150-450) k/uL MPV 10.2 Neutrophils % 87 % Lymphocytes % 7 % Monocytes % 3 % Eosinophils % 0 % Basophils % 0 % Neutrophils # 7.9 H (1.3-7.7) k/uL Lymphocytes # 0.6 L (1.0-4.8) k/uL Monocytes # 0.3 (0-1.0) k/uL Eosinophils # 0.0 (0-0.7) k/uL Basophils # 0.0 (0-0.2) k/uL Manual Slide Review Performed Macrocytosis Marked A Sodium 132 L (137-145) mmol/L Potassium 4.4 (3.5-5.1) mmol/L Chloride 104 (98-107) mmol/L Carbon Dioxide 20 L (22-30) mmol/L Anion Gap 8 mmol/L BUN 24 H (9-20) mg/dL Creatinine 0.98 (0.66-1.25) mg/dL Est GFR (CKD-EPI)AfAm 83 (>60 ml/min/1.73 sqM) Est GFR (CKD-EPI)NonAf 72 (>60 ml/min/1.73 sqM) Glucose 157 H (74-99) mg/dL Calcium 8.8 (8.4-10.2) mg/dL Total Bilirubin 1.4 H (0.2-1.3) mg/dL AST 33 (17-59) U/L ALT 22 (4-49) U/L Alkaline Phosphatase 91 (38-126) U/L Total Protein 6.3 (6.3-8.2) g/dL Albumin 3.9 (3.5-5.0) g/dL Influenza Type A (PCR) Not Detected (Not Detectd) Influenza Type B (PCR) Not Detected (Not Detectd) RSV (PCR) Not Detected (Not Detectd) SARS-CoV-2 (PCR) Detected A (Not Detectd) - Radiology Data Radiology results: report reviewed, image reviewed Disposition Clinical Impression: Fall, COVID-19 Disposition: HOME SELF-CARE Instructions (If sedation given, give patient instructions): Coronavirus Disease 2019 (COVID-19), Fall Prevention for Older Adults (ED), How to Recover from COVID-19 at Home (ED) Additional Instructions: Return to the emergency department with any new, worsening, or concerning symptoms. Take the Paxlovid as prescribed for 5 days. You can take the Tessalon Perles up to every 8 hours as needed for coughing. Take Tylenol as needed for pain relief. Prescriptions: Nirmatrelvir/Ritonavir [Paxlovid 300-100 mg Dose Pack] 1 pack PO BID 5 Days #30 tab Benzonatate [Tessalon Perle] 200 mg PO TID PRN #30 capsule PRN Reason: Cough Is patient prescribed a controlled substance at d/c from ED?: No Referrals: Manoj Larson MD [Primary Care Provider] - 1-2 days Time of Disposition: 11:15
[2024-02-26 10:12] LABS: Basophils % (A) 0 %; Eosinophils % (A) 0 %; HCT 35.5 % (39.0-53.0); HGB 11.7 gm/dL (13.0-17.5); Lymphocytes # (A) 0.6 k/uL (1.0-4.8); Lymphocytes % (A) 7 %; MCV 140.1 fL (80.0-100.0); Macrocytosis Marked; Mean Platelet Volume 10.2; Monocytes # (A) 0.3 k/uL (0-1.0); Monocytes % (A) 3 %; Neutrophils # (A) 7.9 k/uL (1.3-7.7); Neutrophils % (A) 87 %; Platelet Count 283 k/uL (150-450); RBC 2.54 m/uL (4.30-5.90); RDW 13.8 % (11.5-15.5); WBC 9.1 k/uL (3.8-10.6)
[2024-02-26 10:14] LABS: ALT 22 U/L (4-49); AST 33 U/L (17-59); African American GFR (CKD) 83 (>60 ml/min/1.73 sqM); Albumin 3.9 g/dL (3.5-5.0); Alkaline Phosphatase 91 U/L (38-126); Anion Gap 8 mmol/L; Blood Urea Nitrogen 24 mg/dL (9-20); Calcium 8.8 mg/dL (8.4-10.2); Carbon Dioxide 20 mmol/L (22-30); Chloride 104 mmol/L (98-107); Glucose 157 mg/dL (74-99); MCH 46.2 pg (25.0-35.0); Non-African American GFR(CKD) 72 (>60 ml/min/1.73 sqM); Potassium 4.4 mmol/L (3.5-5.1); Sodium 132 mmol/L (137-145); Total Bilirubin 1.4 mg/dL (0.2-1.3); Total Protein 6.3 g/dL (6.3-8.2)
[2024-02-26] MEDS: ONDANSETRON 4 MG/2 ML VIAL IVP STA (10:23)
--- NOTE | 2024-02-26 10:27 | XR ---
EXAMINATION TYPE: XR chest 2V DATE OF EXAM: 02/26/2024 9:53 AM COMPARISON: Chest radiographs from CLINICAL INDICATION: Male, 83 years old with history of Cough, fall; [facility] TECHNIQUE: XR chest 2V Frontal and lateral views of the chest. FINDINGS: Rotated exam. Lungs/Pleura: Low lung volumes are present. There is no evidence of pleural effusion, focal consolida tion, or pneumothorax. Pulmonary vascularity: Unremarkable. Heart/mediastinum: Cardiomediastinal silhouette is unremarkable. Musculoskeletal: No acute osseous pathology. IMPRESSION: Rotated exam. Low lung volumes with a generalized hazy appearance which could represent atelectasis [facility], , 02/26/2024 10:24 AM
[2024-02-26] MEDS: ONDANSETRON 4 MG ODT STARTER PACK 2 TAB BTL PO STA (11:25)
[2024-02-26] MEDS: ACET/COD 300 MG/30 MG STARTER PACK 6 TAB BTL PO STA (11:25)
[2024-02-26] MEDS: BENZONATATE 100 MG CAP PO STA (11:26)
[2024-02-26] MEDS: ACETAMINOPHEN TAB 500 MG TAB PO STA (11:26)
[2024-02-26] MEDS: LIDOCAINE 4% PATCH TOPICAL ONE (11:28)
[2024-02-26 11:39] VITALS: BP 129/88; PULSE 90; TEMP 98
== END 2024-02-26 11:39 | disposition home or self-care (01) ==
LOC: EC 09:30
DX: S29.9XXA Unspecified injury of thorax, initial encounter (principal); U07.1 COVID-19; I25.10 Atherosclerotic heart disease of native coronary artery without angina pectoris; Z88.8 Allergy status to other drugs, medicaments and biological substances; Z79.02 Long term (current) use of antithrombotics/antiplatelets; W19.XXXA Unspecified fall, initial encounter
CPT/HCPCS: 36415; 93005; 80053; 85025; 87636; 71046; 99285; 96374; J2405; S0119